=== PATIENT | female | born 1960 | race Caucasian/White ===

== ENCOUNTER 2020-07-16 20:54 | Emergency (ER) | payer BC, MEDICAID ==
[2020-07-16] MEDS ORDERED: Sodium Chloride 0.9% 10 ML Syringe FLUSH PRN (21:05)
[2020-07-16] MEDS ORDERED: Aspirin 81 MG Tab.Chew PO ONE (21:11)
[2020-07-16] MEDS ORDERED: Morphine 4 MG/ML Syringe IVPUSH ONE (21:38)
[2020-07-16] MEDS ORDERED: methylPREDNISolone Sodium Succinate 125 MG/2 ML SDV IM ONE (21:38)
[2020-07-16] MEDS ORDERED: methylPREDNISolone Sodium Succinate 125 MG/2 ML SDV IVPUSH ONE (21:40)
[2020-07-16 21:56] LABS: ANION GAP 17.2 mmol/L (5-15); CHLORIDE,CL 105 mmol/L (98-107); SODIUM,NA 142 mmol/L (136-145)
[2020-07-16] MEDS ORDERED: HYDROmorphone 1 MG/ML Syringe IVPUSH ONE (22:04)
[2020-07-16] MEDS ORDERED: Ketorolac 15 MG/ML SDV IVPUSH ONE (22:19)
[2020-07-16] MEDS ORDERED: Lisinopril 10 MG Tab PO ONE (22:23)
[2020-07-16] MEDS ORDERED: Take Home: Ketorolac 10 MG Tab, 4 Tab Pack PO ONE (22:26)
[2020-07-16] MEDS ORDERED: Take Home: Acetaminophen/HYDROcodone 325-5 MG, 5 Tab Pack PO ONE (22:34)
--- NOTE | 2020-07-17 06:13 | EDM.PDOC ---
ED HPI GENERAL MEDICAL PROBLEM - General Chief Complaint: Chest Pain Stated Complaint: CHEST PAIN Time Seen by Provider: 07/16/20 20:54 Source of Information: Reports: Patient History Limitations: Reports: No Limitations - History of Present Illness INITIAL COMMENTS - FREE TEXT/NARRATIVE: Pt. presents to ER with complaints of severe respirophasic substernal chest pain. Pt. states that she was lying on her sofa when the pain started. She states that the discomfort potentiates when she takes a deep breath and with movement/palpation. She states that she has never had pain like this in the past. Denies any radiation into jaw, arms, neck or back. No fever or chills. No cough or chest congestion. Pt. is a smoker. She has a history of hypertension and dyslipidemia but stopped taking her medications years ago. Pt. denies any lightheadedness. No diaphoresis. Denies any recent trauma. No nausea, vomiting, or diarrhea. Onset Date: 07/16/20 Location: Reports: Chest Quality: Reports: Ache, Pressure, Sharp Severity: Severe Associated Symptoms: Reports: Chest Pain upper chest Pain Score (Numeric/FACES): 2 - Related Data Allergies Allergy/AdvReac Type Severity Reaction Status Date / Time No Known Allergies Allergy Verified 07/16/20 21:05 Home Meds: Home Meds . [No Known Home Meds] 07/16/20 [History] Past Medical History Cardiovascular History: Reports: High Cholesterol, Hypertension Gastrointestinal History: Reports: GERD Social & Family History - Tobacco Use Tobacco Use Status *Q: Current Every Day Tobacco User Years of Tobacco use: 30 Packs/Tins Daily: 0.5 ED ROS GENERAL - Review of Systems Review Of Systems: See Below Constitutional: Reports: No Symptoms HEENT: Reports: No Symptoms Respiratory: Reports: Pleuritic Chest Pain Cardiovascular: Reports: No Symptoms Endocrine: Reports: No Symptoms GI/Abdominal: Reports: No Symptoms : Reports: No Symptoms Musculoskeletal: Reports: No Symptoms Skin: Reports: No Symptoms Neurological: Reports: No Symptoms Psychiatric: Reports: No Symptoms Hematologic/Lymphatic: Reports: No Symptoms Immunologic: Reports: No Symptoms ED EXAM, GENERAL - Physical Exam Exam: See Below Exam Limited By: No Limitations General Appearance: Alert, WD/WN, No Apparent Distress Throat/Mouth: Normal Lips, Normal Teeth, Normal Oropharynx, Normal Voice, No Airway Compromise Head: Atraumatic, Normocephalic Neck: Normal Inspection, Supple, Non-Tender, Full Range of Motion Respiratory/Chest: No Respiratory Distress, No Accessory Muscle Use, Decreased Breath Sounds Cardiovascular: Normal Peripheral Pulses, Regular Rate, Rhythm, No Edema, No JVD, No Murmur Peripheral Pulses: 4+: Radial (L) GI/Abdominal: Soft, Non-Tender, No Distention, No Mass (Female) Exam: Deferred Rectal (Female) Exam: Deferred Neurological: Alert, Oriented, CN II-XII Intact, Normal Cognition, Normal Gait, Normal Reflexes, No Motor/Sensory Deficits Psychiatric: Normal Affect, Normal Mood Skin Exam: Warm, Dry, Intact, Normal Color, No Rash Lymphatic: No Adenopathy #1 Interpretation Rhythm: NSR [place]: Normal P-Wave: Present QRS: Normal ST-T: Normal QT: Normal Course - Vital Signs Last Recorded V/S: Last Vital Signs Temp 36.6 C 07/16/20 20:54 Pulse 89 07/16/20 20:54 Resp 16 07/16/20 22:15 BP 189/93 H 07/16/20 22:45 Pulse Ox 94 L 07/16/20 22:15 - Orders/Labs/Meds Orders: Active Orders 24 hr Category Date Time Status Chest 1V Frontal [CR] Stat Exams 07/16/20 21:06 Taken Peripheral IV Insertion Adult [OM.PC] Routine Oth 07/16/20 21:06 Ordered Labs: Laboratory Tests 07/16/20 07/16/20 07/16/20 Range/Units 21:25 21:25 21:25 WBC 8.2 (4.0-10.0) x10^3/uL RBC 4.29 (4.00-5.50) x10^6/uL Hgb 13.3 (12.0-16.0) g/dL Hct 39.9 (33.0-47.0) % MCV 93.0 (78.0-93.0) fL MCH 31.0 (26.0-32.0) pg MCHC 33.3 (32.0-36.0) g/dL RDW Coeff of Aliyah 12.6 (10.0-15.0) % Plt Count 309 (130-400) x10^3/uL Neut % (Auto) 54.2 (50.0-80.0) % Lymph % (Auto) 35.1 (25.0-50.0) % [place] % (Auto) 8.6 (2.0-11.0) % Eos % (Auto) 1.6 (0.0-4.0) % Baso % (Auto) 0.5 (0.2-1.2) % PT 9.4 L (9.9-12.5) SEC INR 0.8 L (2.0-3.5) APTT (25.6-32.8) SEC D-Dimer, Quantitative 0.34 (<=0.58) mg/LFEU Sodium 142 (136-145) mmol/L Potassium 3.2 L (3.5-5.1) mmol/L Chloride 105 (98-107) mmol/L Carbon Dioxide 23 (21-32) mmol/L Anion Gap 17.2 H (5-15) mmol/L BUN 7 (7-18) mg/dL Creatinine 1.0 (0.55-1.02) mg/dL Est Cr Clr Drug Dosing TNP Estimated GFR (MDRD) 57 Glucose 100 (74-106) mg/dL Calcium 8.8 (8.5-10.1) mg/dL Corrected Calcium 9.04 (8.5-10.1) mg/dL Total Bilirubin 0.3 (0.2-1.0) mg/dL AST 13 L (15-37) U/L ALT 26 (14-59) U/L Alkaline Phosphatase 86 (46-116) U/L Troponin I High Sens 5 (<=51) ng/L C-Reactive Protein 0.6 (<=0.9) mg/dL Total Protein 7.9 (6.4-8.2) g/dL Albumin 3.7 (3.4-5.0) g/dL Globulin 4.2 Albumin/Globulin Ratio 0.88 /07/07 Range/Units 21:25 WBC (4.0-10.0) x10^3/uL RBC (4.00-5.50) x10^6/uL Hgb (12.0-16.0) g/dL Hct (33.0-47.0) % MCV (78.0-93.0) fL MCH (26.0-32.0) pg MCHC (32.0-36.0) g/dL RDW Coeff of Aliyah (10.0-15.0) % Plt Count (130-400) x10^3/uL Neut % (Auto) (50.0-80.0) % Lymph % (Auto) (25.0-50.0) % [place] % (Auto) (2.0-11.0) % Eos % (Auto) (0.0-4.0) % Baso % (Auto) (0.2-1.2) % PT (9.9-12.5) SEC INR (2.0-3.5) APTT 24.5 L (25.6-32.8) SEC D-Dimer, Quantitative (<=0.58) mg/LFEU Sodium (136-145) mmol/L Potassium (3.5-5.1) mmol/L Chloride (98-107) mmol/L Carbon Dioxide (21-32) mmol/L Anion Gap (5-15) mmol/L BUN (7-18) mg/dL Creatinine (0.55-1.02) mg/dL Est Cr Clr Drug Dosing Estimated GFR (MDRD) Glucose (74-106) mg/dL Calcium (8.5-10.1) mg/dL Corrected Calcium (8.5-10.1) mg/dL Total Bilirubin (0.2-1.0) mg/dL AST (15-37) U/L ALT (14-59) U/L Alkaline Phosphatase (46-116) U/L Troponin I High Sens (<=51) ng/L C-Reactive Protein (<=0.9) mg/dL Total Protein (6.4-8.2) g/dL Albumin (3.4-5.0) g/dL Globulin Albumin/Globulin Ratio Meds: Medications Discontinued Medications Generic Name Dose Route Start Last Admin Trade Name Freq PRN Reason Stop Dose Admin Hydrocodone Bitart/Acetaminophen 1 packet 07/16/20 22:34 07/16/20 22:45 Take Home: Acetam/Hydrocodon 325-5 Mg, 5 Pack PO 07/16/20 22:35 1 packet ONETIME ONE Administration Aspirin 324 mg 07/16/20 21:11 07/16/20 21:15 Aspirin PO 07/16/20 21:12 324 mg ONETIME ONE Administration Hydromorphone HCl 1 mg 07/16/20 22:04 07/16/20 22:15 Dilaudid IVPUSH 07/16/20 22:05 1 mg ONETIME ONE Administration Ketorolac Tromethamine 15 mg 07/16/20 22:19 07/16/20 22:44 Toradol IVPUSH 07/16/20 22:20 15 mg ONETIME ONE Administration Ketorolac Tromethamine 1 packet 07/16/20 22:26 07/16/20 22:45 Take Home: Ketorolac 10 Mg, 4 Tab Pack PO 07/16/20 22:27 1 packet ONETIME ONE Administration Lisinopril 10 mg 07/16/20 22:23 07/16/20 22:45 Prinivil PO 07/16/20 22:24 10 mg ONETIME ONE Administration Methylprednisolone Sodium Succinate 125 mg 07/16/20 21:38 Solu-Medrol IM 07/16/20 21:39 ONETIME ONE Methylprednisolone Sodium Succinate 125 mg 07/16/20 21:40 07/16/20 21:48 Solu-Medrol IVPUSH 07/16/20 21:41 125 mg ONETIME ONE Administration Morphine Sulfate 4 mg 07/16/20 21:38 07/16/20 21:50 Morphine IVPUSH 07/16/20 21:39 4 mg ONETIME ONE Administration Sodium Chloride 10 ml 07/16/20 21:05 Saline Flush FLUSH ASDIRECTED PRN Keep Vein Open - Radiology Interpretation Free Text/Narrative:: Pleural thickening. No infiltrate. No other acute pathology noted. Departure - Departure Time of Disposition: 23:00 Disposition: Home, Self-Care 01 Clinical Impression: Atypical chest pain, Pleurisy, Hypertension - Discharge Information Instructions: Acetaminophen; Hydrocodone tablets or capsules, Hypertension, Adult, [id number], Lisinopril tablets, Pleurisy, [id number], Ketorolac Oral Tablets, Prednisone tablets Referrals: Omar Fuentes PA-C [Primary Care Provider] - Forms: ED Department Discharge Additional Instructions: Home to rest. Lisinopril 10mg 1 tab daily for blood pressure Prednisone 20mg 3 tabs daily for 5 days Toradol 10mg 1 tab every 6 hours as needed for continued pain If still having severe pain Olmitz 5/325mg 1 every 4-6 hours as needed for pain Recheck in clinic in 7-10 days, sooner if not gradually improving. Sepsis Event Note (ED) - Evaluation Sepsis Screening Result: No Definite Risk - Focused Exam Vital Signs: Vital Signs Temp Pulse Resp BP BP Pulse Ox 07/16/20 22:45 189/93 H 07/16/20 22:15 16 189/93 H 94 L 07/16/20 22:01 16 191/95 H 95 07/16/20 21:48 18 201/96 H 96 07/16/20 20:54 36.6 C 89 20 193/106 H 99 - Problem List Review Problem List Initiated/Reviewed/Updated: Yes - My Orders Last 24 Hours: My Active Orders 07/16/20 21:06 Chest 1V Frontal [CR] Stat Peripheral IV Insertion Adult [OM.PC] Routine - Assessment/Plan Last 24 Hours: My Active Orders 07/16/20 21:06 Chest 1V Frontal [CR] Stat Peripheral IV Insertion Adult [OM.PC] Routine Plan: Home to rest. Lisinopril 10mg 1 tab daily for blood pressure Prednisone 20mg 3 tabs daily for 5 days Toradol 10mg 1 tab every 6 hours as needed for continued pain If still having severe pain Olmitz 5/325mg 1 every 4-6 hours as needed for pain Recheck in clinic in 7-10 days, sooner if not gradually improving.
--- NOTE | 2020-07-17 07:42 | CR ---
[id number] RAD/RAD Chest PA or AP 1V EXAM: FRONTAL CHEST INDICATION: Chest pain. COMPARISON: None. DISCUSSION: Mild bibasilar scarring or atelectasis. Ill-defined right upper lobe opacity, favor atelectasis. Consider follow-up radiographs. No definite infiltrates. Trace fluid or pleural thickening involving the minor fissure. Normal heart size. IMPRESSION: 1. Mild bibasilar atelectasis. 2. Ill-defined right upper lobe opacity potentially representing atelectasis. Consider follow-up PA and lateral views. 3. Trace pleural thickening or fluid in the minor fissure. Sumanth Colón MD 07/17/20 0741 Thank you for allowing us to participate in the care of your patient.
== END 2020-07-16 22:59 | disposition home or self-care (01) ==
LOC: VM.ED 20:54
DX: R09.1 Pleurisy (principal); I10 Essential (primary) hypertension; Z72.0 Tobacco use
CPT/HCPCS: 36415; 71045; 80053; 84484; 85025; 85379; 85610; 85730; 86140; 93005; 93010; 96374; 96375; 99284; 99285-25; A9270-GY; J1170; J1885; J2270; J2930